=== PATIENT | female | born 1995 ===

== ENCOUNTER 2016-05-31 21:15 | Emergency (ER) | payer OTHER ==
--- NOTE | 2016-05-31 23:02 | ED NURSING NOTES ---
Clinical Report - Nurses [facility] [address] 05/31/2016 21:15 Patient: AUGUSTUS DODSON TRIAGE Triage time 21:May 31 2016. Acuity: LEVEL 3. Chief Complaint: RIGHT LOWER EXTREMITY SWELLING. LEFT LOWER EXTREMITY SWELLING. Alert. TONY COMA SCORE: Tony Coma Scale: 15- eyes open spontaneously (4); best verbal response- oriented x 4 (5); best motor response- obeys commands (6). --21:37 Jony Man R.N. 21:21 05/31/16. BP: 105/61. HR: 97. RR: 16. O2 saturation: 97%. Temp: 99 F. Pain level now: 8/10. Additional comments: Bilateral Foot Pain. --21:37 Jony Man R.N. Weight: 122.4 kg stated. Height/Length: 64 inches Per Patient. BMI: 46.4. --21:33 Jony Man R.N. Medications Levothyroxine Sodium Oral uncertain amount (Her PCP at the time told her to stop taking it (no blood work done)). --21:39 Jony Man R.N. Allergies Toradol. Definite Moderate(swelling) (burning) Tramadol.(swelling) (burning) --21:38 Jony Man R.N. History Arrived by private vehicle. Historian: patient. Primary physician ([place], [place]). ( Bilateral Swelling of the feet and legs associated with nausea and a BLANKENSHIP Also has intermittent pain in LUQ along the diaphragm). No injury occurred. This occurred (about 2 days ago). She has had swelling to right foot and left foot, trouble walking and weakness. Treatment AIRPORT REPRESENTATIVE: None. PAST MEDICAL HX: Tetanus status: unknown. Immunizations: seasonal influenza: first dose. Possibly . SOCIAL HX: Heavy tobacco smoker (cigarette)- less than 1 pack per day. No infectious disease exposure. ABUSE ASSESSMENT: No report of abuse. FALL RISK ASSESSMENT: Fall risk assessment completed. No fall risk identified. NUTRITIONAL RISK ASSESSMENT: The nutritional risk assessment revealed no deficiencies. FUNCTIONAL ASSESSMENT: Functional assessment: no impairments noted. LEARNING NEEDS ASSESSMENT: The learning needs assessment revealed no barriers. --21:37 Jony Man R.N. PROBLEMS: Neck Pain. Eustachian Tube Dysfunction. Bronchitis. Pharyngitis. Lumbar Strain. Back Pain. Muscle Spasm. Immunizations. LNMP - Last Normal Menstrual Period. Hypothyroidism. Lupus. --21:34 Jony Man R.N. ADDITIONAL SURGERIES: Tonsillectomy. --21:34 Jony Man R.N. Adenoidectomy. --21:34 Jony Man R.N. Interventions ID band on patient. To treatment room. --21:37 Jony aMn R.N. PHYSICAL ASSESSMENT Ambulatory to room. GENERAL / NEURO / PSYCH: Oriented X 4. EXTREMITIES: ( Slight bilat swelling around medial malleolus). SKIN: Skin intact. Skin is warm and dry. --21:42 Jony Man R.N. NURSING PROGRESS NOTES Reassurance given. Patient identifiers checked. Call light placed in reach. Side rails up x 1. Bed placed in lowest position. Brakes of bed on. Patient ready for evaluation- chart flagged and ED physician notified. --21:42 Jony Man R.N. DISPOSITION / DISCHARGE 23:10 05/31/16. Condition at departure: stable. The goals identified in the patient's plan of care were met. No learning barriers present. Discharge instructions provided and reviewed with the patient. Reviewed medication(s) side effects, precautions, dosing and course information. Prescription(s) given to the patient. Reviewed need for increased fluid intake. Patient and bag presser verbalized understanding. Written instructions provided in Vincentian. ( Follow up with your PCP in three days. CHC information given. Patient and bag presser wondering about how UTI is contracted. Patient advised to wipe front to back, avoid wearing tight synthetic material underwear. Drink plenty of fluids. Urinate after sexual intercourse.). The patient was discharged by the physician producer assistant. She was discharged home and accompanied by bag presser. She left the Emergency Department ambulatory and via private vehicle. Social And Human Services Assistant driving. FALL RISK ASSESSMENT: Fall risk assessment completed. No fall risk identified. --23:41 Tea Louise 23:10 05/31/16. BP: 105/60. HR: 82. RR: 18. O2 saturation: 97% on room air. Temp: 98.2 F (oral). Pain level now: 08/11. --23:41 Tea Louise. Locked/Released at 05/31/2016 23:42 by Tea Louise,
--- NOTE | 2016-05-31 23:02 | ED NURSING NOTES ---
Clinical Report - Nurses [facility] [place] [address] 05/31/2016 21:15 Patient: AUGUSTUS DODSON TRIAGE Triage time 21:May 31 2016. Acuity: LEVEL 3. Chief Complaint: RIGHT LOWER EXTREMITY SWELLING. LEFT LOWER EXTREMITY SWELLING. Alert. TONY COMA SCORE: Tony Coma Scale: 15- eyes open spontaneously (4); best verbal response- oriented x 4 (5); best motor response- obeys commands (6). --21:37 Jony Man R.N. 21:21 05/31/16. BP: 105/61. HR: 97. RR: 16. O2 saturation: 97%. Temp: 99 F. Pain level now: 8/10. Additional comments: Bilateral Foot Pain. --21:37 Jony Man R.N. Weight: 122.4 kg stated. Height/Length: 64 inches Per Patient. BMI: 46.4. --21:33 Jony Man R.N. Medications Levothyroxine Sodium Oral uncertain amount (Her PCP at the time told her to stop taking it (no blood work done)). --21:39 Jony Man R.N. Allergies Toradol. Definite Moderate(swelling) (burning) Tramadol.(swelling) (burning) --21:38 Jony Man R.N. History Arrived by private vehicle. Historian: patient. Primary physician ([place], [place]). ( Bilateral Swelling of the feet and legs associated with nausea and a BLANKENSHIP Also has intermittent pain in LUQ along the diaphragm). No injury occurred. This occurred (about 2 days ago). She has had swelling to right foot and left foot, trouble walking and weakness. Treatment HATCHERY LABORER: None. PAST MEDICAL HX: Tetanus status: unknown. Immunizations: seasonal influenza: first dose. Possibly . SOCIAL HX: Heavy tobacco smoker (cigarette)- less than 1 pack per day. No infectious disease exposure. ABUSE ASSESSMENT: No report of abuse. FALL RISK ASSESSMENT: Fall risk assessment completed. No fall risk identified. NUTRITIONAL RISK ASSESSMENT: The nutritional risk assessment revealed no deficiencies. FUNCTIONAL ASSESSMENT: Functional assessment: no impairments noted. LEARNING NEEDS ASSESSMENT: The learning needs assessment revealed no barriers. --21:37 Jony Man R.N. PROBLEMS: Neck Pain. Eustachian Tube Dysfunction. Bronchitis. Pharyngitis. Lumbar Strain. Back Pain. Muscle Spasm. Immunizations. LNMP - Last Normal Menstrual Period. Hypothyroidism. Lupus. --21:34 Jony Man R.N. ADDITIONAL SURGERIES: Tonsillectomy. --21:34 Jony Man R.N. Adenoidectomy. --21:34 Jony Man R.N. Interventions ID band on patient. To treatment room. --21:37 Jony Man R.N. PHYSICAL ASSESSMENT Ambulatory to room. GENERAL / NEURO / PSYCH: Oriented X 4. EXTREMITIES: ( Slight bilat swelling around medial malleolus). SKIN: Skin intact. Skin is warm and dry. --21:42 Jony Man R.N. NURSING PROGRESS NOTES Reassurance given. Patient identifiers checked. Call light placed in reach. Side rails up x 1. Bed placed in lowest position. Brakes of bed on. Patient ready for evaluation- chart flagged and ED physician notified. --21:42 Jony Man R.N. DISPOSITION / DISCHARGE 23:10 05/31/16. Condition at departure: stable. The goals identified in the patient's plan of care were met. No learning barriers present. Discharge instructions provided and reviewed with the patient. Reviewed medication(s) side effects, precautions, dosing and course information. Prescription(s) given to the patient. Reviewed need for increased fluid intake. Patient and spring floor service worker verbalized understanding. Written instructions provided in Dominican. ( Follow up with your PCP in three days. CHC information given. Patient and spring floor service worker wondering about how UTI is contracted. Patient advised to wipe front to back, avoid wearing tight synthetic material underwear. Drink plenty of fluids. Urinate after sexual intercourse.). The patient was discharged by the physician field assistant. She was discharged home and accompanied by spring floor service worker. She left the Emergency Department ambulatory and via private vehicle. Career Resource Specialist driving. FALL RISK ASSESSMENT: Fall risk assessment completed. No fall risk identified. --23:41 Tea Louise 23:10 05/31/16. BP: 105/60. HR: 82. RR: 18. O2 saturation: 97% on room air. Temp: 98.2 F (oral). Pain level now: 08/11. --23:41 Tea Louise. Locked/Released at 05/31/2016 23:42 by Tea Louise,
--- NOTE | 2016-05-31 23:02 | ED ORDER SUMMARY ---
..... Patient: AUGUSTUS DODSON OrderSheet [facility] VisitID: [id number] [place] [address] 20y, F Registration Date/Time: 05/31/2016 ORDER SHEET Weight: 122.4 kg (stated) Allergies: Toradol, Tramadol GENERAL ORDERS: UA-Culture if indicated Urgent (21:43 05/31/2016 JRomanelli R.N. verbal order read back to HBivens A.R.N.P.) (21:43 JRomanelli R.N.) Urine Urgent (21:43 05/31/2016 JRomanelli R.N. verbal order read back to HBivens A.R.N.P.) (21:43 JRomanelli R.N.) CBC w Diff Urgent (21:45 05/31/2016 HBivens A.R.N.P.) (Ack 21:46 SBaldwin) (23:42 HSoule) CMP Urgent (21:45 05/31/2016 HBivens A.R.N.P.) (Ack 21:46 SBaldwin) (23:42 HSoule) TSH Urgent (21:45 05/31/2016 HBivens A.R.N.P.) (Ack 21:46 SBaldwin) (23:42 HSoule) MEDICATION ORDERS: IV FLUIDS: ORDER SHEET NOTES: [Electronically signed by Julia De La Cruz A.R.N.P. (23:20 05/31/2016)] [Electronically signed by Tea Louise (23:42 05/31/2016)] [Electronically locked/signed by Tea Louise (23:42 05/31/2016)]
--- NOTE | 2016-05-31 23:02 | ED CLINICAL REPORT ---
Clinical Report - Physicians/Mid Levels [facility] [address] [place] [address] 05/31/2016 21:15 Patient: AUGUSTUS DODSON Time Seen: 21:29; initial patient contact, initial documentation, patient care assumed. Arrived- By private vehicle. Historian- patient. HISTORY OF PRESENT ILLNESS Chief Complaint: LOWER EXTREMITY SWELLING. Not relieved by anything- worsened by standing and walking. Severity is described as being mild. It is described as radiating (none). This started about 2 days ago and is still present. Symptoms located in the area of the right ankle, right leg, right foot, left leg, left foot and left ankle. The patient has had swelling, but not had redness. She has had difficulty walking. No bladder dysfunction, bowel dysfunction, sensory loss or motor loss. Patient denies an injury. Similar symptoms previously: None. Recent medical care: Not recently seen/assessed. REVIEW OF SYSTEMS No chest pain, difficulty breathing, fever, abdominal pain or vomiting. No diarrhea. All systems otherwise negative, except as recorded above. PAST HISTORY See nurses notes. ( PROBLEMS: Neck Pain. Eustachian Tube Dysfunction. Bronchitis. Pharyngitis. Lumbar Strain. Back Pain. Muscle Spasm. Immunizations. LNMP - Last Normal Menstrual Period. Hypothyroidism. Lupus. --21:34 Jony Man, R.N. ADDITIONAL SURGERIES: Tonsillectomy. --21:34 Jony Man, R.N. Adenoidectomy. --21:34 Jony Man, R.N.). SOCIAL HISTORY Heavy tobacco smoker. Occasional alcohol use. No drug use. No recent travel. Is a local resident. FAMILY HISTORY Negative. ADDITIONAL NOTES The nursing notes have been reviewed with agreement regarding the chief complaint, HPI, ROS, PMH and patient medications and allergies. PHYSICAL EXAM Vital Signs: 05/31/2016 21:21 BP: 105/61. HR: 97. RR: 16. O2 saturation: 97%. Temp: 99 F. Pain level now: 8/10. Have been reviewed as normal and appear to be correct. Appearance: Alert. Oriented X3. No acute distress. Eyes: Pupils equal, round and reactive to light. Eyes normal inspection. Neck: Normal inspection. Neck supple. CVS: Normal heart rate and rhythm. Heart sounds normal. Respiratory: No respiratory distress. Breath sounds normal. Skin: Skin intact. Skin warm and dry. Normal skin color. Normal skin turgor. Extremities: Lower extremities exhibit normal ROM. No lower extremity edema. Extremities otherwise negative. Gait: Normal gait. Neuro: Oriented X 3. No motor deficit. No sensory deficit. LABS, X-RAYS, AND EKG Laboratory Tests: UA-Culture if indicated: (TJ: 05/31/2016 21:25) ( [facility] 05/31/2016 22:03) Final results Test Result Flag Units (Reference) URINE COLOR YELLOW URINE APPEARANCE SL CLOUDY URINE GLUCOSE NEGATIVE (NEGATIVE) URINE BILIRUBIN NEGATIVE (NEGATIVE) URINE KETONE NEGATIVE (NEGATIVE) URINE SPECIFIC GRAVITY 1.015 (1.010-1.030) URINE PH 8.0 (5.0-8.0) URINE PROTEIN NEGATIVE (NEGATIVE) URINE UROBILINOGEN 0.2 EU/dL (0.2-1.0) URINE NITRITE NEGATIVE (NEGATIVE) URINE BLOOD NEGATIVE (NEGATIVE) URINE LEUK ESTERASE TRACE (NEGATIVE) URINE RBC 0-1 rbc/hpf (0-1) URINE WBC 3-5 wbc/hpf (0-1) URINE EPITHELIAL CELLS 3-5 EPI/hpf (0-5) URINE BACTERIA FEW (1+) (NONE SEEN) URINE COMMENT CULTURE INDICATED URINE CULTURES ARE SET-UP BASED ON THE FOLLOWING CRITERIA:POSITIVE NITRITEPOSITIVE LEUKOCYTE ESTERASEGREATER THAN 10 WHITE BLOOD CELLSMODERATE (2+) OR GREATER BACTERIA Urine: (TJ: 05/31/2016 21:25) ( [facility] 05/31/2016 21:56) Final results Test Result Flag Units (Reference) URINE NEGATIVE CBC w Diff: (TJ: 05/31/2016 21:55) ( [facility] 05/31/2016 22:15) Final results Test Result Flag Units (Reference) WHITE BLOOD COUNT 13.5 H K/uL (4.5-11.5) RED BLOOD COUNT 4.63 M/uL (4.00-5.20) HEMOGLOBIN 12.8 gm/dL (12.0-16.0) HEMATOCRIT 38.6 % (36.0-46.0) MEAN CELL VOLUME 83 fL (80-100) MEAN CORPUSCULAR HGB 28 pg (26-34) MEAN CORPUSCULAR HGB CONC 33 g/dL (31-37) RED CELL DISTRIBUTION WIDTH 13.3 % (11.6-14.8) PLATELET COUNT 326 K/uL (150-400) NEUTROPHIL % 59.9 % (50-75) LYMPH % 31.2 % (25-40) MONO % 5.9 % (3-14) EOSINOPHIL % 2.4 % (0-4) BASOPHIL % 0.6 % (0-2) CMP: (TJ: 05/31/2016 21:55) ( MsgRcvd 05/31/2016 22:37) Final results Test Result Flag Units (Reference) GLUCOSE 97 mg/dL (70-110) BUN 16 mg/dL (7-18) CREATININE 1.0 mg/dL (0.6-1.3) Estimated GFR >60 mL/min Estimated GFR- >60 mL/min Note: Persistent reduction over 3 months in eGFR<60 mL/min/1.73 m2 defines CKD. Patients with eGFR values>=60 mL/min/1.73 m2 may also have CKD if evidence ofpersistent proteinuria. Additional information may be foundat www.kidney.org. SODIUM 140 mmol/L (136-145) POTASSIUM 3.6 mmol/L (3.5-5.1) CHLORIDE 105 mmol/L (98-107) CARBON DIOXIDE 26 mmol/L (21-32) CALCIUM 8.9 mg/dL (8.5-10.1) TOTAL PROTEIN 7.3 g/dL (6.4-8.2) ALBUMIN 3.4 g/dL (3.3-5.0) BILIRUBIN, TOTAL 0.4 mg/dL (0.0-1.0) ALKALINE PHOSPHATASE 82 U/L (46-116) AST (SGOT) 21 U/L (15-37) ALT (SGPT) 42 U/L (12-78) THYROID STIMULATING HORMONE 3.889 H uIU/mL (0.34-3.74) . PROGRESS AND PROCEDURES Course of Care: 21:29 05/31/16. pt has velia for #19 er visits, see report for full details. Patient counseled in person regarding the patient's stable condition and diagnosis. 22:59. Differential Diagnosis: I considered metastatic cancer, multiple myeloma, degenerative joint disease, myositis, fasciitis, tendonitis, bursitis, embolism, deep venous thrombosis and superficial thrombophlebitis as a possible cause of lower extremity pain in this patient. This is a partial list of diagnoses considered. (pvd, electrolyte imbalance, chf, hypothyroid). Above considerations are based on history, physical exam and laboratory data. Differential diagnosis was discussed with patient. Disposition: Discharged home in good and unchanged condition (23:02). Condition: good and stable. CLINICAL IMPRESSION Acute urinary tract infection with cystitis. No pyelonephritis or hematuria. Not associated with indwelling catheter or obstruction. INSTRUCTIONS Warnings: GENERAL WARNINGS: Return or contact your physician immediately if your condition worsens or changes unexpectedly, if not improving as expected, or if other problems arise. Specifically return if problem worsens. Prescription Medications: Trimethoprim-Sulfamethoxazole DS: take 1 tablet orally every 12 hours for 7 days. Dispense fourteen (14). No refills. Follow-up: Follow up with your doctor in about three days even if well. Call for an appointment. Summary of care provided to patient. Understanding of the discharge instructions verbalized by patient. (Electronically signed by Julia De La Cruz A.R.N.P. 05/31/2016 23:20)
--- NOTE | 2016-05-31 23:02 | ED ORDER SUMMARY ---
..... Patient: AUGUSTUS DODSON OrderSheet [facility] VisitID: [id number] [place] [address] 20y, F Registration Date/Time: 05/31/2016 ORDER SHEET Weight: 122.4 kg (stated) Allergies: Toradol, Tramadol GENERAL ORDERS: UA-Culture if indicated Urgent (21:43 05/31/2016 JRomanelli R.N. verbal order read back to HBivens A.R.N.P.) (21:43 JRomanelli R.N.) Urine Urgent (21:43 05/31/2016 JRomanelli R.N. verbal order read back to HBivens A.R.N.P.) (21:43 JRomanelli R.N.) CBC w Diff Urgent (21:45 05/31/2016 HBivens A.R.N.P.) (Ack 21:46 SBaldwin) (23:42 HSoule) CMP Urgent (21:45 05/31/2016 HBivens A.R.N.P.) (Ack 21:46 SBaldwin) (23:42 HSoule) TSH Urgent (21:45 05/31/2016 HBivens A.R.N.P.) (Ack 21:46 SBaldwin) (23:42 HSoule) MEDICATION ORDERS: IV FLUIDS: ORDER SHEET NOTES: [Electronically signed by Julia De La Cruz A.R.N.P. (23:20 05/31/2016)] [Electronically signed by Tea Louise (23:42 05/31/2016)] [Electronically locked/signed by Tea Louise (23:42 05/31/2016)]
--- NOTE | 2016-05-31 23:42 | ED MAR SUMMARY ---
..... Medication Administration [facility] [address] [place], [place] [id number] Patient: AUGUSTUS DODSON Visit ID: [id number] 20y, F Weight: 122.4 kg Height/Length: 64 in BMI: 46.4 ALLERGIES: Toradol, Tramadol
--- NOTE | 2016-05-31 23:42 | ED MED RECONCILIATION SUMMARY ---
Patient: AUGUSTUS DODSON Medication Reconciliation Report [facility] VisitID: [id number] [place] [address] 20y, F Registration Date/Time: 05/31/2016 Weight: 122.4 kg Height/Length: 64 in. BMI: 46.4 ALLERGIES: Toradol, Tramadol The patient's Home Medications are listed below: THE FOLLOWING MEDICATIONS NEED TO BE RECONCILED: Levothyroxine Sodium Oral uncertain amount, Her PCP at the time told her to stop taking it (no blood work done) The source(s) of the original Home Medication information: Not obtained. The following Medications were given to the patient in the Emergency Department: None. The following Medications were prescribed to the patient: Trimethoprim-Sulfamethoxazole DS: take 1 tablet orally every 12 hours for 7 days. Dispense fourteen (14). No refills. -- Julia De La Cruz A.R.N.P.
--- NOTE | 2016-05-31 23:42 | ED MED RECONCILIATION SUMMARY ---
Patient: AUGUSTUS DODSON Medication Reconciliation Report [facility] VisitID: [id number] [place] [address] 20y, F Registration Date/Time: 05/31/2016 Weight: 122.4 kg Height/Length: 64 in. BMI: 46.4 ALLERGIES: Toradol, Tramadol The patient's Home Medications are listed below: THE FOLLOWING MEDICATIONS NEED TO BE RECONCILED: Levothyroxine Sodium Oral uncertain amount, Her PCP at the time told her to stop taking it (no blood work done) The source(s) of the original Home Medication information: Not obtained. The following Medications were given to the patient in the Emergency Department: None. The following Medications were prescribed to the patient: Trimethoprim-Sulfamethoxazole DS: take 1 tablet orally every 12 hours for 7 days. Dispense fourteen (14). No refills. -- Julia De La Cruz A.R.N.P.
--- NOTE | 2016-05-31 23:42 | ED DISCHARGE INSTRUCTIONS ---
Patient: AUGUSTUS DODSON General Instructions [facility] VisitID: [id number] [place] [address] 20y, F Registration Date/Time: 05/31/2016 Acute urinary tract infection with cystitis. No pyelonephritis or hematuria. Not associated with indwelling catheter or obstruction. INSTRUCTIONS Warnings: GENERAL WARNINGS: Return or contact your physician immediately if your condition worsens or changes unexpectedly, if not improving as expected, or if other problems arise. Specifically return if problem worsens. Prescription Medications: Trimethoprim-Sulfamethoxazole DS: take 1 tablet orally every 12 hours for 7 days. Dispense fourteen (14). No refills. Follow-up: Follow up with your doctor in about three days even if well. Call for an appointment. Summary of care provided to patient. Understanding of the discharge instructions verbalized by patient. ADDITIONAL INFORMATION Bladder Infection,Female (Adult) A bladder infection ("cystitis" or "UTI") usually causes a constant urge to urinate and a burning when passing urine. Urine may be cloudy, smelly or dark. There may be pain in the lower abdomen. A bladder infection occurs when bacteria from the vaginal area enter the bladder opening (urethra). This can occur from sexual intercourse, wearing tight clothing, dehydration and other factors. Home Care: Drink lots of fluids (at least 6-8 glasses a day, unless you must restrict fluids for other medical reasons). This will force the medicine into your urinary system and flush the bacteria out of your body. Avoid sexual intercourse until your symptoms are gone. Avoid caffeine, alcohol and spicy foods. These can irritate the bladder. A bladder infection is treated with antibiotics. You may also be given Pyridium (generic = phenazopyridine) to reduce the burning sensation. This medicine will cause your urine to become a bright orange color. The orange urine may stain clothing. You may wear a pad or panty-liner to protect clothing. Preventing Future Infections: Always wipe from front to back after a bowel movement. Keep the genital area clean and dry. Drink plenty of fluids each day to avoid dehydration. Both sexual partners should wash before intercourse. Urinate right after intercourse to flush out the bladder. Wear cotton underwear and cotton-lined panty hose; avoid tight-fitting pants. If you are on control pills and are having frequent bladder infections, discuss with your doctor. Follow Up: Return to this facility or see your doctor if ALL symptoms are not gone after three days of treatment. Get Prompt Medical Attention if any of the following occur: Fever of 100.4F (38C) or higher, or as directed by your healthcare provider No improvement by the third day of treatment Increasing back or abdominal pain Repeated vomiting; unable to keep medicine down Weakness, dizziness or fainting Vaginal discharge Pain, redness or swelling in the labia (outer vaginal area) Sulfamethoxazole, Trimethoprim Oral tablet What is this medicine? SULFAMETHOXAZOLE; TRIMETHOPRIM or SMX-TMP (suhl fuh meth OK chi zohl; trye METH oh prim) is a combination of a sulfonamide antibiotic and a second antibiotic, trimethoprim. It is used to treat or prevent certain kinds of bacterial infections. It will not work for colds, flu, or other viral infections. How should I use this medicine? Take this medicine by mouth with a full glass of water. Follow the directions on the prescription label. Take your medicine at regular intervals. Do not take it more often than directed. Do not skip doses or stop your medicine early. Talk to your firearms model maker regarding the use of this medicine in children. Special care may be needed. This medicine has been used in children as young as 2 months of age. What side effects may I notice from receiving this medicine? Side effects that you should report to your doctor or health career services officer as soon as possible: allergic reactions like skin rash or hives, swelling of the face, lips, or tongue breathing problems fever or chills, sore throat irregular heartbeat, chest pain joint or muscle pain pain or difficulty passing urine red pinpoint spots on skin redness, blistering, peeling or loosening of the skin, including inside the mouth unusual bleeding or bruising unusually weak or tired yellowing of the eyes or skin Side effects that usually do not require medical attention (report to your doctor or health career services officer if they continue or are bothersome): diarrhea dizziness headache loss of appetite nausea, vomiting nervousness What may interact with this medicine? Do not take this medicine with any of the following medications: aminobenzoate potassium dofetilide metronidazole This medicine may also interact with the following medications: MEHRAN inhibitors like benazepril, enalapril, lisinopril, and ramipril cyclosporine digoxin diuretics indomethacin medicines for diabetes methenamine methotrexate phenytoin potassium supplements pyrimethamine sulfinpyrazone tricyclic antidepressants warfarin What if I miss a dose? If you miss a dose, take it as soon as you can. If it is almost time for your next dose, take only that dose. Do not take double or extra doses. Where should I keep my medicine? Keep out of the reach of children. Store at room temperature between 20 to 25 degrees C (68 to 77 degrees F). Protect from light. Throw away any unused medicine after the expiration date. What should I tell my health care provider before I take this medicine? They need to know if you have any of these conditions: anemia asthma being treated with anticonvulsants if you frequently drink alcohol containing drinks kidney disease liver disease low level of folic acid or [id number]-[id number] dehydrogenase poor nutrition or malabsorption porphyria severe allergies thyroid disorder an unusual or allergic reaction to sulfamethoxazole, trimethoprim, sulfa drugs, other medicines, foods, dyes, or preservatives or trying to get breast-feeding What should I watch for while using this medicine? Tell your doctor or health career services officer if your symptoms do not improve. Drink several glasses of water a day to reduce the risk of kidney problems. Do not treat diarrhea with over the counter products. Contact your doctor if you have diarrhea that lasts more than 2 days or if it is severe and watery. This medicine can make you more sensitive to the sun. Keep out of the sun. If you cannot avoid being in the sun, wear protective clothing and use a sunscreen. Do not use sun lamps or tanning beds/booths. You have been given the following additional information: Bladder Infection, Female (Adult) Sulfamethoxazole, Trimethoprim Oral tablet (Electronically signed by Julia De La Cruz A.R.N.P. 05/31/2016 23:20)
--- NOTE | 2016-05-31 23:42 | ED MAR SUMMARY ---
..... Medication Administration Record [facility] [address] [place], [place] [id number] Patient: AUGUSTUS DODSON Visit ID: [id number] 20y, F Weight: 122.4 kg Height/Length: 64 in BMI: 46.4 ALLERGIES: Toradol, Tramadol
--- NOTE | 2016-05-31 23:42 | ED DISCHARGE INSTRUCTIONS ---
Patient: AUGUSTUS DODSON General Instructions [facility] VisitID: [id number] [place] [address] 20y, F Registration Date/Time: 05/31/2016 Acute urinary tract infection with cystitis. No pyelonephritis or hematuria. Not associated with indwelling catheter or obstruction. INSTRUCTIONS Warnings: GENERAL WARNINGS: Return or contact your physician immediately if your condition worsens or changes unexpectedly, if not improving as expected, or if other problems arise. Specifically return if problem worsens. Prescription Medications: Trimethoprim-Sulfamethoxazole DS: take 1 tablet orally every 12 hours for 7 days. Dispense fourteen (14). No refills. Follow-up: Follow up with your doctor in about three days even if well. Call for an appointment. Summary of care provided to patient. Understanding of the discharge instructions verbalized by patient. ADDITIONAL INFORMATION Bladder Infection,Female (Adult) A bladder infection ("cystitis" or "UTI") usually causes a constant urge to urinate and a burning when passing urine. Urine may be cloudy, smelly or dark. There may be pain in the lower abdomen. A bladder infection occurs when bacteria from the vaginal area enter the bladder opening (urethra). This can occur from sexual intercourse, wearing tight clothing, dehydration and other factors. Home Care: Drink lots of fluids (at least 6-8 glasses a day, unless you must restrict fluids for other medical reasons). This will force the medicine into your urinary system and flush the bacteria out of your body. Avoid sexual intercourse until your symptoms are gone. Avoid caffeine, alcohol and spicy foods. These can irritate the bladder. A bladder infection is treated with antibiotics. You may also be given Pyridium (generic = phenazopyridine) to reduce the burning sensation. This medicine will cause your urine to become a bright orange color. The orange urine may stain clothing. You may wear a pad or panty-liner to protect clothing. Preventing Future Infections: Always wipe from front to back after a bowel movement. Keep the genital area clean and dry. Drink plenty of fluids each day to avoid dehydration. Both sexual partners should wash before intercourse. Urinate right after intercourse to flush out the bladder. Wear cotton underwear and cotton-lined panty hose; avoid tight-fitting pants. If you are on control pills and are having frequent bladder infections, discuss with your doctor. Follow Up: Return to this facility or see your doctor if ALL symptoms are not gone after three days of treatment. Get Prompt Medical Attention if any of the following occur: Fever of 100.4F (38C) or higher, or as directed by your healthcare provider No improvement by the third day of treatment Increasing back or abdominal pain Repeated vomiting; unable to keep medicine down Weakness, dizziness or fainting Vaginal discharge Pain, redness or swelling in the labia (outer vaginal area) Sulfamethoxazole, Trimethoprim Oral tablet What is this medicine? SULFAMETHOXAZOLE; TRIMETHOPRIM or SMX-TMP (suhl fuh meth OK chi zohl; trye METH oh prim) is a combination of a sulfonamide antibiotic and a second antibiotic, trimethoprim. It is used to treat or prevent certain kinds of bacterial infections. It will not work for colds, flu, or other viral infections. How should I use this medicine? Take this medicine by mouth with a full glass of water. Follow the directions on the prescription label. Take your medicine at regular intervals. Do not take it more often than directed. Do not skip doses or stop your medicine early. Talk to your traveling freight agent regarding the use of this medicine in children. Special care may be needed. This medicine has been used in children as young as 2 months of age. What side effects may I notice from receiving this medicine? Side effects that you should report to your doctor or health managed care director as soon as possible: allergic reactions like skin rash or hives, swelling of the face, lips, or tongue breathing problems fever or chills, sore throat irregular heartbeat, chest pain joint or muscle pain pain or difficulty passing urine red pinpoint spots on skin redness, blistering, peeling or loosening of the skin, including inside the mouth unusual bleeding or bruising unusually weak or tired yellowing of the eyes or skin Side effects that usually do not require medical attention (report to your doctor or health managed care director if they continue or are bothersome): diarrhea dizziness headache loss of appetite nausea, vomiting nervousness What may interact with this medicine? Do not take this medicine with any of the following medications: aminobenzoate potassium dofetilide metronidazole This medicine may also interact with the following medications: MEHRAN inhibitors like benazepril, enalapril, lisinopril, and ramipril cyclosporine digoxin diuretics indomethacin medicines for diabetes methenamine methotrexate phenytoin potassium supplements pyrimethamine sulfinpyrazone tricyclic antidepressants warfarin What if I miss a dose? If you miss a dose, take it as soon as you can. If it is almost time for your next dose, take only that dose. Do not take double or extra doses. Where should I keep my medicine? Keep out of the reach of children. Store at room temperature between 20 to 25 degrees C (68 to 77 degrees F). Protect from light. Throw away any unused medicine after the expiration date. What should I tell my health care provider before I take this medicine? They need to know if you have any of these conditions: anemia asthma being treated with anticonvulsants if you frequently drink alcohol containing drinks kidney disease liver disease low level of folic acid or fkytokj-[id number]-opmmxhnbr dehydrogenase poor nutrition or malabsorption porphyria severe allergies thyroid disorder an unusual or allergic reaction to sulfamethoxazole, trimethoprim, sulfa drugs, other medicines, foods, dyes, or preservatives or trying to get breast-feeding What should I watch for while using this medicine? Tell your doctor or health managed care director if your symptoms do not improve. Drink several glasses of water a day to reduce the risk of kidney problems. Do not treat diarrhea with over the counter products. Contact your doctor if you have diarrhea that lasts more than 2 days or if it is severe and watery. This medicine can make you more sensitive to the sun. Keep out of the sun. If you cannot avoid being in the sun, wear protective clothing and use a sunscreen. Do not use sun lamps or tanning beds/booths. You have been given the following additional information: Bladder Infection, Female (Adult) Sulfamethoxazole, Trimethoprim Oral tablet (Electronically signed by Julia De La Cruz A.R.N.P. 05/31/2016 23:20)
== END 2016-05-31 23:10 | disposition home or self-care (01) ==
LOC: ED SRH 21:15
DX: N30.00 Acute cystitis without hematuria (principal); M32.9 Systemic lupus erythematosus, unspecified; F17.210 Nicotine dependence, cigarettes, uncomplicated; Z88.8 Allergy status to other drugs, medicaments and biological substances; E03.9 Hypothyroidism, unspecified
CPT/HCPCS: 90004; 90100; 90469; 93070; 93140; 95059

== ENCOUNTER 2016-07-14 18:39 | Emergency (ER) | payer OTHER ==
--- NOTE | 2016-07-14 20:17 | ED NURSING NOTES ---
Clinical Report - Nurses [facility] [address] [place] [address] 07/14/2016 18:42 Patient: AUGUSTUS WINSLOW TRIAGE Triage time 1845. Acuity: LEVEL 3. Chief Complaint: (Pt feels she is retaining water and has bilat leg swelling, no swelling is appreciated and there is no redness). Alert. No acute distress. --18:56 Marina Nicole 18:52 07/14/16. BP: 125/72. HR: 82. RR: 16. O2 saturation: 100%. Temp: 98 F. Pain level now 210. --18:56 Marina Nicole. Weight: 125.4 kg. Height/Length: 65 inches. BMI: 46.1. --18:51 Marina Nicole. Medications None. --18:54 Marina Nicole. Medication/allergy information source: the patient. --18:56 Marina Nicole. Allergies Toradol. --18:54 Marina Nicole Tramadol. --18:54 Marina Nicole. History Arrived by private vehicle. Historian: patient. Accompanied by (SO). Treatment DISTRIBUTION DISPATCHER: None. PAST MEDICAL HX: Last normal menstrual period- June 21. SOCIAL HX: Light tobacco smoker (cigarette)- less than 1/2 a pack per day. --18:56 Marina Nicole. PROBLEMS: UTI - Urinary Tract Infection. Neck Pain. Eustachian Tube Dysfunction. Bronchitis. Pharyngitis. Lumbar Strain. Back Pain. Muscle Spasm. Hypothyroidism. Lupus. --18:54 Marina Nicole. ADDITIONAL SURGERIES: Adenoidectomy. Tonsillectomy. --18:55 Marina Nicole. Interventions ID band on patient. To treatment room. --18:56 Marina Nicole. PHYSICAL ASSESSMENT Ambulatory to room. GENERAL / NEURO / PSYCH: Alert. Oriented X 4. Appears in no acute distress. ( Fully ambulatory with even steady gait). HEENT: Pupils equal, round and reactive to light. No facial asymmetry noted. Mucous membranes are pink. RESPIRATORY: Respirations not labored. Chest nontender. Breath sounds within normal limits. CVS: Normal sinus rhythm noted. Capillary refill less than 2 seconds. Pulses within normal limits. GI / : ( morbidly obese abd). Abdomen soft and nontender and normal bowel sounds. SKIN: Skin intact. Skin is warm. Normal skin turgor. --18:57 Marina Nicole. NURSING PROGRESS NOTES Reassurance given. Call light placed in reach. Side rails up x 1. Bed placed in lowest position. Brakes of bed on. Patient ready for evaluation- chart flagged. --18:57 Marina Nicole 19:30. The patient is resting quietly. Overall patient status is the same- she states feels the same. --19:30 Jennifer Woods R.N. Blood samples drawn by lab. --19:30 Jennifer Woods R.N. Clean catch urine collected. (specimen taken by company laborer). --19:31 Jennifer Woods R.N. The patient reports no complaints and she is calm and resting quietly. Patient waiting for lab results. --19:58 Marina Nicole 19:57 07/14/16. BP: 114/59. HR: 80. RR: 16. O2 saturation: 100%. --19:58 Marina Nicole. DISPOSITION / DISCHARGE 20:31 07/14/16. Condition at departure: improved. No learning barriers present. Discharge instructions provided and reviewed with the patient. Reviewed medication(s) side effects, precautions, dosing and course information. Prescription(s) given to the patient (Levothyroxine). Reviewed need to stop smoking- provided smoking cessation materials. Follow up contact number Seamar in 2 days. Patient verbalized understanding. Written instructions provided in Cuban. The patient was discharged by the physician. She was discharged home and accompanied by spouse. She left the Emergency Department ambulatory and via private vehicle. Spouse driving. --20:31 Eloisa Rodriguez R.N. 20:26 07/14/16. BP: 114/63 (large adult cuff) taken on the left arm. HR: 84. RR: 18. O2 saturation: 99% on room air. Temp: 98.3 F (oral). Pain level now: 0/10. --20:31 Eloisa Rodriguez R.N. Departure time: 20:34 Jul 14 2016. --20:34 Eloisa Rodriguez R.N. Locked/Released at 07/15/2016 6:19 by Eloisa Rodriguez R.N.
--- NOTE | 2016-07-14 20:17 | ED NURSING NOTES ---
Clinical Report - Nurses [facility] [address] [place] [address] 07/14/2016 18:42 Patient: AUGUSTUS WINSLOW TRIAGE Triage time 1845. Acuity: LEVEL 3. Chief Complaint: (Pt feels she is retaining water and has bilat leg swelling, no swelling is appreciated and there is no redness). Alert. No acute distress. --18:56 Marina Nicole 18:52 07/14/16. BP: 125/72. HR: 82. RR: 16. O2 saturation: 100%. Temp: 98 F. Pain level now 210. --18:56 Marina Nicole. Weight: 125.4 kg. Height/Length: 65 inches. BMI: 46.1. --18:51 Marina Nicole. Medications None. --18:54 Marina Nicole. Medication/allergy information source: the patient. --18:56 Marina Nicole. Allergies Toradol. --18:54 Marian Nicole Tramadol. --18:54 Marina Nicole. History Arrived by private vehicle. Historian: patient. Accompanied by (SO). Treatment PC ANALYST: None. PAST MEDICAL HX: Last normal menstrual period- June 21. SOCIAL HX: Light tobacco smoker (cigarette)- less than 1/2 a pack per day. --18:56 Marina Nicole. PROBLEMS: UTI - Urinary Tract Infection. Neck Pain. Eustachian Tube Dysfunction. Bronchitis. Pharyngitis. Lumbar Strain. Back Pain. Muscle Spasm. Hypothyroidism. Lupus. --18:54 Marina Nicole. ADDITIONAL SURGERIES: Adenoidectomy. Tonsillectomy. --18:55 Marina Nicole. Interventions ID band on patient. To treatment room. --18:56 Marina Nicole. PHYSICAL ASSESSMENT Ambulatory to room. GENERAL / NEURO / PSYCH: Alert. Oriented X 4. Appears in no acute distress. ( Fully ambulatory with even steady gait). HEENT: Pupils equal, round and reactive to light. No facial asymmetry noted. Mucous membranes are pink. RESPIRATORY: Respirations not labored. Chest nontender. Breath sounds within normal limits. CVS: Normal sinus rhythm noted. Capillary refill less than 2 seconds. Pulses within normal limits. GI / : ( morbidly obese abd). Abdomen soft and nontender and normal bowel sounds. SKIN: Skin intact. Skin is warm. Normal skin turgor. --18:57 Marina Nicole. NURSING PROGRESS NOTES Reassurance given. Call light placed in reach. Side rails up x 1. Bed placed in lowest position. Brakes of bed on. Patient ready for evaluation- chart flagged. --18:57 Marina Nicole 19:30. The patient is resting quietly. Overall patient status is the same- she states feels the same. --19:30 Jennifer Woods R.N. Blood samples drawn by lab. --19:30 Jennifer Woods R.N. Clean catch urine collected. (specimen taken by laboratory specialist). --19:31 Jennifer Woods R.N. The patient reports no complaints and she is calm and resting quietly. Patient waiting for lab results. --19:58 Marina Nicole 19:57 07/14/16. BP: 114/59. HR: 80. RR: 16. O2 saturation: 100%. --19:58 Marina Nicole. DISPOSITION / DISCHARGE 20:31 07/14/16. Condition at departure: improved. No learning barriers present. Discharge instructions provided and reviewed with the patient. Reviewed medication(s) side effects, precautions, dosing and course information. Prescription(s) given to the patient (Levothyroxine). Reviewed need to stop smoking- provided smoking cessation materials. Follow up contact number Seamar in 2 days. Patient verbalized understanding. Written instructions provided in Luxembour[place]. The patient was discharged by the physician. She was discharged home and accompanied by spouse. She left the Emergency Department ambulatory and via private vehicle. Spouse driving. --20:31 Eloisa Rodriguez R.N. 20:26 07/14/16. BP: 114/63 (large adult cuff) taken on the left arm. HR: 84. RR: 18. O2 saturation: 99% on room air. Temp: 98.3 F (oral). Pain level now: 0/10. --20:31 Eloisa Rodriguez R.N. Departure time: 20:34 Jul 14 2016. --20:34 Eloisa Rodriguez R.N. Locked/Released at 07/15/2016 6:19 by Eloisa Rodriguez R.N.
--- NOTE | 2016-07-14 20:17 | ED CLINICAL REPORT ---
Clinical Report - Physicians/Mid Levels [facility] [address] [place] [address] 07/14/2016 18:42 Patient: AUGUSTUS WINSLOW Time Seen: 18:49. Arrived- By private vehicle. Historian- patient. HISTORY OF PRESENT ILLNESS Chief Complaint: LOWER EXTREMITY SWELLING. This started several months ago and is still present. It was gradual in onset and has been waxing/waning. At its maximum, severity described as moderate. When seen in the E.D., severity described as moderate. Modifying factors- worsened by walking. Relieved by rest. No loss of appetite, headache, visual disturbance, fatigue or weakness. Similar symptoms previously: Recent medical care: The patient was seen recently at this facility and another facility in the emergency department. Diagnosis: unknown. ( Pt seen at [facility] ED about 1 month ago and about 2 weeks ago at an ED in [place], [place]). REVIEW OF SYSTEMS No fever, sore throat, sinus drainage, cough or difficulty breathing. No chest pain, abdominal pain, nausea, vomiting or diarrhea. No black stools, bloody stools, difficulty with urination, abnormal bleeding or back pain. No headache. The patient has had difficulty with ambulation. It has been associated with pain in both legs. All systems otherwise negative, except as recorded above. PAST HISTORY See nurses notes. PCP: Catalino Rodrigues PROBLEMS: Neck Pain. Eustachian Tube Dysfunction. Bronchitis. Pharyngitis. Lumbar Strain. Back Pain. Muscle Spasm. Hypothyroidism. Lupus. SURGERIES: Tonsillectomy. Adenoidectomy. SOCIAL HISTORY Smoker- current status unknown. Occasional alcohol use. No drug use. FAMILY HISTORY Cancer in first-degree relative (father). Father had alpha -1 antitrypsin def. ADDITIONAL NOTES The nursing notes have been reviewed. PHYSICAL EXAM Vital Signs: 07/14/2016 18:52 BP: 125/72. HR: 82. RR: 16. O2 saturation: 100%. Temp: 98 F. Appearance: Alert. Anxious. Patient in mild distress. Eyes: Eyes normal inspection. No scleral icterus or pale conjunctivae. ENT: Pharynx normal. No pharyngeal erythema or tonsillar exudate. The mucous membranes are not dry. Neck: Normal inspection. Neck supple. CVS: Normal heart rate and rhythm. Heart sounds normal. Pulses normal. Respiratory: No respiratory distress. Breath sounds normal. Abdomen: No visible injury. Soft and nontender. No organomegaly. No mass. Back: Normal inspection. Skin: Skin warm and dry. Normal skin color. No rash. Normal skin turgor. Extremities: Bilateral mild edema of the lower extremities. Extremities exhibit normal ROM. No calf tenderness. (body habitus limits exam). Neuro: Oriented X 3. No motor deficit. No sensory deficit. Reflexes normal. LABS, X-RAYS, AND EKG Laboratory Tests: UA-Culture if indicated: (TJ: 07/14/2016 19:12) ( [facility] 07/14/2016 19:41) Final results Test Result Flag Units (Reference) URINE COLOR YELLOW URINE APPEARANCE CLEAR URINE GLUCOSE NEGATIVE (NEGATIVE) URINE BILIRUBIN NEGATIVE (NEGATIVE) URINE KETONE NEGATIVE (NEGATIVE) URINE SPECIFIC GRAVITY 1.020 (1.010-1.030) URINE PH 7.0 (5.0-8.0) URINE PROTEIN NEGATIVE (NEGATIVE) URINE UROBILINOGEN 0.2 EU/dL (0.2-1.0) URINE NITRITE NEGATIVE (NEGATIVE) URINE BLOOD NEGATIVE (NEGATIVE) URINE LEUK ESTERASE NEGATIVE (NEGATIVE) URINE RBC 0-1 rbc/hpf (0-1) URINE WBC 1-3 wbc/hpf (0-1) URINE EPITHELIAL CELLS 1-3 EPI/hpf (0-5) URINE BACTERIA NONE SEEN (NONE SEEN) URINE COMMENT CULT NOT INDICATED URINE CULTURES ARE SET-UP BASED ON THE FOLLOWING CRITERIA:POSITIVE NITRITEPOSITIVE LEUKOCYTE ESTERASEGREATER THAN 10 WHITE BLOOD CELLSMODERATE (2+) OR GREATER BACTERIA CBC w Diff: (TJ: 07/14/2016 19:12) ( [facility] 07/14/2016 19:31) Final results Test Result Flag Units (Reference) WHITE BLOOD COUNT 12.5 H K/uL (4.5-11.5) RED BLOOD COUNT 4.78 M/uL (4.00-5.20) HEMOGLOBIN 13.1 gm/dL (12.0-16.0) HEMATOCRIT 40.5 % (36.0-46.0) MEAN CELL VOLUME 85 fL (80-100) MEAN CORPUSCULAR HGB 28 pg (26-34) MEAN CORPUSCULAR HGB CONC 33 g/dL (31-37) RED CELL DISTRIBUTION WIDTH 13.5 % (11.6-14.8) PLATELET COUNT 355 K/uL (150-400) NEUTROPHIL % 61.1 % (50-75) LYMPH % 29.6 % (25-40) MONO % 7.5 % (3-14) EOSINOPHIL % 1.4 % (0-4) BASOPHIL % 0.4 % (0-2) [id number]: (TJ: 07/14/2016 19:12) ( [facility] 07/14/2016 19:52) Final results Test Result Flag Units (Reference) D-DIMER QUANTITATIVE < 0.27 L ug/mLFEU (0.27-0.52) The primary value of this quantitative assay relates toits negative predictive value (i.e. exclusion) of pulmonaryembolism/deep vein thrombosis/DIC.Elevated levels of d-dimer may also occur with:, age, cancer, inflammation, liver disease,post-op, infection, hematoma, coronary disease, peripheralarteriopathy, bleeding disorders and thrombolytic treatment.Results should be correlated with other clinical andradiological data.Testing Methodology: Latex Immunoassay BNP: (TJ: 07/14/2016 19:12) ( [facility] 07/14/2016 19:44) Final results Test Result Flag Units (Reference) B-TYPE NATRIURETIC PEPTIDE < 5.0 L pg/ml (5-100) BMP: (TJ: 07/14/2016 19:12) ( [facility] 07/14/2016 19:59) Final results Test Result Flag Units (Reference) GLUCOSE 97 mg/dL (70-110) BUN 10 mg/dL (7-18) CREATININE 0.8 mg/dL (0.6-1.3) Estimated GFR >60 mL/min Estimated GFR- >60 mL/min Note: Persistent reduction over 3 months in eGFR<60 mL/min/1.73 m2 defines CKD. Patients with eGFR values>=60 mL/min/1.73 m2 may also have CKD if evidence ofpersistent proteinuria. Additional information may be foundat www.kidney.org. SODIUM 144 mmol/L (136-145) POTASSIUM 3.7 mmol/L (3.5-5.1) CHLORIDE 107 mmol/L (98-107) CARBON DIOXIDE 27 mmol/L (21-32) CALCIUM 8.5 mg/dL (8.5-10.1) TROPONIN I <0.05 L ng/mL (0.00-1.5) TROPONIN REFERENCE RANGE:<0.1 NEGATIVE0.1-1.5 INDETERMINANT>1.5 POSITIVE THYROID STIMULATING HORMONE 3.759 H uIU/mL (0.34-3.74) FREE T4 (FREE THYROXINE) 1.20 ng/dL (0.78-4.13) . Pulse Oximetry: 07/14/2016 18:52 O2 saturation: 100%. (FIO2 - room air). Interpretation: normal. PROGRESS AND PROCEDURES Course of Care: No signs of serious cardiopulmonary disease now. Mild hypothyroid (chronic and without myxedema). Patient/family counseled. Old ED records reviewed. Disposition: Discharged. Condition: stable and improved. CLINICAL IMPRESSION Bilateral pedal edema secondary to chronic venous insufficiency and unknown cause. Acquired hypothyroidism. INSTRUCTIONS Drink plenty of fluids. Do not smoke. Seek medical help to quit smoking. No alcohol until released. Warnings: Further evaluation is necessary. It is very important to follow up with a physician. GENERAL WARNINGS: Return or contact your physician immediately if your condition worsens or changes unexpectedly, if not improving as expected, or if other problems arise. Prescription Medications: Levothyroxine 100 mcg: take 1 orally every 24 hours. Dispense fifteen (15). No refills. Follow-up with: [facility], [facility], , [address] [place] [address], [place] [address] Follow up Saturday in two days. (Electronically signed by Jean-Claude Barrera DO 07/14/2016 21:32)
--- NOTE | 2016-07-14 20:17 | ED CLINICAL REPORT ---
Clinical Report - Physicians/Mid Levels [facility] [address] [place] [address] 07/14/2016 18:42 Patient: AUGUSTUS WINSLOW Time Seen: 18:49. Arrived- By private vehicle. Historian- patient. HISTORY OF PRESENT ILLNESS Chief Complaint: LOWER EXTREMITY SWELLING. This started several months ago and is still present. It was gradual in onset and has been waxing/waning. At its maximum, severity described as moderate. When seen in the E.D., severity described as moderate. Modifying factors- worsened by walking. Relieved by rest. No loss of appetite, headache, visual disturbance, fatigue or weakness. Similar symptoms previously: Recent medical care: The patient was seen recently at this facility and another facility in the emergency department. Diagnosis: unknown. ( Pt seen at [facility] ED about 1 month ago and about 2 weeks ago at an ED in [place], [place]). REVIEW OF SYSTEMS No fever, sore throat, sinus drainage, cough or difficulty breathing. No chest pain, abdominal pain, nausea, vomiting or diarrhea. No black stools, bloody stools, difficulty with urination, abnormal bleeding or back pain. No headache. The patient has had difficulty with ambulation. It has been associated with pain in both legs. All systems otherwise negative, except as recorded above. PAST HISTORY See nurses notes. PCP: Catalino Rodrigues PROBLEMS: Neck Pain. Eustachian Tube Dysfunction. Bronchitis. Pharyngitis. Lumbar Strain. Back Pain. Muscle Spasm. Hypothyroidism. Lupus. SURGERIES: Tonsillectomy. Adenoidectomy. SOCIAL HISTORY Smoker- current status unknown. Occasional alcohol use. No drug use. FAMILY HISTORY Cancer in first-degree relative (father). Father had alpha -1 antitrypsin def. ADDITIONAL NOTES The nursing notes have been reviewed. PHYSICAL EXAM Vital Signs: 07/14/2016 18:52 BP: 125/72. HR: 82. RR: 16. O2 saturation: 100%. Temp: 98 F. Appearance: Alert. Anxious. Patient in mild distress. Eyes: Eyes normal inspection. No scleral icterus or pale conjunctivae. ENT: Pharynx normal. No pharyngeal erythema or tonsillar exudate. The mucous membranes are not dry. Neck: Normal inspection. Neck supple. CVS: Normal heart rate and rhythm. Heart sounds normal. Pulses normal. Respiratory: No respiratory distress. Breath sounds normal. Abdomen: No visible injury. Soft and nontender. No organomegaly. No mass. Back: Normal inspection. Skin: Skin warm and dry. Normal skin color. No rash. Normal skin turgor. Extremities: Bilateral mild edema of the lower extremities. Extremities exhibit normal ROM. No calf tenderness. (body habitus limits exam). Neuro: Oriented X 3. No motor deficit. No sensory deficit. Reflexes normal. LABS, X-RAYS, AND EKG Laboratory Tests: UA-Culture if indicated: (TJ: 07/14/2016 19:12) ( [facility] 07/14/2016 19:41) Final results Test Result Flag Units (Reference) URINE COLOR YELLOW URINE APPEARANCE CLEAR URINE GLUCOSE NEGATIVE (NEGATIVE) URINE BILIRUBIN NEGATIVE (NEGATIVE) URINE KETONE NEGATIVE (NEGATIVE) URINE SPECIFIC GRAVITY 1.020 (1.010-1.030) URINE PH 7.0 (5.0-8.0) URINE PROTEIN NEGATIVE (NEGATIVE) URINE UROBILINOGEN 0.2 EU/dL (0.2-1.0) URINE NITRITE NEGATIVE (NEGATIVE) URINE BLOOD NEGATIVE (NEGATIVE) URINE LEUK ESTERASE NEGATIVE (NEGATIVE) URINE RBC 0-1 rbc/hpf (0-1) URINE WBC 1-3 wbc/hpf (0-1) URINE EPITHELIAL CELLS 1-3 EPI/hpf (0-5) URINE BACTERIA NONE SEEN (NONE SEEN) URINE COMMENT CULT NOT INDICATED URINE CULTURES ARE SET-UP BASED ON THE FOLLOWING CRITERIA:POSITIVE NITRITEPOSITIVE LEUKOCYTE ESTERASEGREATER THAN 10 WHITE BLOOD CELLSMODERATE (2+) OR GREATER BACTERIA CBC w Diff: (TJ: 07/14/2016 19:12) ( [facility] 07/14/2016 19:31) Final results Test Result Flag Units (Reference) WHITE BLOOD COUNT 12.5 H K/uL (4.5-11.5) RED BLOOD COUNT 4.78 M/uL (4.00-5.20) HEMOGLOBIN 13.1 gm/dL (12.0-16.0) HEMATOCRIT 40.5 % (36.0-46.0) MEAN CELL VOLUME 85 fL (80-100) MEAN CORPUSCULAR HGB 28 pg (26-34) MEAN CORPUSCULAR HGB CONC 33 g/dL (31-37) RED CELL DISTRIBUTION WIDTH 13.5 % (11.6-14.8) PLATELET COUNT 355 K/uL (150-400) NEUTROPHIL % 61.1 % (50-75) LYMPH % 29.6 % (25-40) MONO % 7.5 % (3-14) EOSINOPHIL % 1.4 % (0-4) BASOPHIL % 0.4 % (0-2) [id number]: (TJ: 07/14/2016 19:12) ( [facility] 07/14/2016 19:52) Final results Test Result Flag Units (Reference) D-DIMER QUANTITATIVE < 0.27 L ug/mLFEU (0.27-0.52) The primary value of this quantitative assay relates toits negative predictive value (i.e. exclusion) of pulmonaryembolism/deep vein thrombosis/DIC.Elevated levels of d-dimer may also occur with:, age, cancer, inflammation, liver disease,post-op, infection, hematoma, coronary disease, peripheralarteriopathy, bleeding disorders and thrombolytic treatment.Results should be correlated with other clinical andradiological data.Testing Methodology: Latex Immunoassay BNP: (TJ: 07/14/2016 19:12) ( [facility] 07/14/2016 19:44) Final results Test Result Flag Units (Reference) B-TYPE NATRIURETIC PEPTIDE < 5.0 L pg/ml (5-100) BMP: (TJ: 07/14/2016 19:12) ( [facility] 07/14/2016 19:59) Final results Test Result Flag Units (Reference) GLUCOSE 97 mg/dL (70-110) BUN 10 mg/dL (7-18) CREATININE 0.8 mg/dL (0.6-1.3) Estimated GFR >60 mL/min Estimated GFR- >60 mL/min Note: Persistent reduction over 3 months in eGFR<60 mL/min/1.73 m2 defines CKD. Patients with eGFR values>=60 mL/min/1.73 m2 may also have CKD if evidence ofpersistent proteinuria. Additional information may be foundat www.kidney.org. SODIUM 144 mmol/L (136-145) POTASSIUM 3.7 mmol/L (3.5-5.1) CHLORIDE 107 mmol/L (98-107) CARBON DIOXIDE 27 mmol/L (21-32) CALCIUM 8.5 mg/dL (8.5-10.1) TROPONIN I <0.05 L ng/mL (0.00-1.5) TROPONIN REFERENCE RANGE:<0.1 NEGATIVE0.1-1.5 INDETERMINANT>1.5 POSITIVE THYROID STIMULATING HORMONE 3.759 H uIU/mL (0.34-3.74) FREE T4 (FREE THYROXINE) 1.20 ng/dL (0.78-4.13) . Pulse Oximetry: 07/14/2016 18:52 O2 saturation: 100%. (FIO2 - room air). Interpretation: normal. PROGRESS AND PROCEDURES Course of Care: No signs of serious cardiopulmonary disease now. Mild hypothyroid (chronic and without myxedema). Patient/family counseled. Old ED records reviewed. Disposition: Discharged. Condition: stable and improved. CLINICAL IMPRESSION Bilateral pedal edema secondary to chronic venous insufficiency and unknown cause. Acquired hypothyroidism. INSTRUCTIONS Drink plenty of fluids. Do not smoke. Seek medical help to quit smoking. No alcohol until released. Warnings: Further evaluation is necessary. It is very important to follow up with a physician. GENERAL WARNINGS: Return or contact your physician immediately if your condition worsens or changes unexpectedly, if not improving as expected, or if other problems arise. Prescription Medications: Levothyroxine 100 mcg: take 1 orally every 24 hours. Dispense fifteen (15). No refills. Follow-up with: [facility], [place], , [address] [place] [address], [place] [address] Follow up Saturday in two days. (Electronically signed by Jean-Claude Barrera DO 07/14/2016 21:32)
--- NOTE | 2016-07-14 20:17 | ED ORDER SUMMARY ---
..... Patient: AUGUSTUS WINSLOW OrderSheet [facility] VisitID: [id number] [place] [address] 20y, F Registration Date/Time: 07/14/2016 ORDER SHEET Weight: 125.4 kg Allergies: Toradol, Tramadol GENERAL ORDERS: CMP Urgent (18:49 07/14/2016 [facility]) (Ack 18:52 [facility]) (Cancelled: Other19:04 [facility]) BMP Urgent (18:49 07/14/2016 [facility]) (Ack 18:52 [facility]) (19:04 [facility]) UA-Culture if indicated Urgent (18:49 07/14/2016 [facility]) (Ack 18:52 [facility]) (20:31 JSanders R.N.) D-Dimer Urgent (18:50 07/14/2016 [facility]) (Ack 18:52 [facility]) (20:31 JSanders R.N.) TSH Urgent (18:51 07/14/2016 [facility]) (Ack 18:52 [facility]) (20:31 JSanders R.N.) FT4(Free T4) Urgent (18:51 07/14/2016 [facility]) (Ack 18:52 [facility]) (20:31 JSanders R.N.) Troponin-I Urgent (18:59 07/14/2016 [facility]) (Ack 19:01 [facility]) (20:31 JSanders R.N.) BNP Urgent (19:04 07/14/2016 [facility]) (Ack 19:05 [facility]) (20:31 JSanders R.N.) CBC w Diff Urgent (19:05 07/14/2016 [facility]) (Ack 19:05 [facility]) (20:31 JSanders R.N.) MEDICATION ORDERS: IV FLUIDS: ORDER SHEET NOTES: [Electronically signed by Jean-Claude Barrera DO (21:32 07/14/2016)] [Electronically signed by Eloisa Rodriguez R.N. (07/15/2016)] [Electronically locked/signed by Eloisa Rodriguez R.N. (07/15/2016)]
--- NOTE | 2016-07-14 20:17 | ED ORDER SUMMARY ---
..... Patient: AUGUSTUS WINSLOW OrderSheet [facility] VisitID: [id number] [place] [address] 20y, F Registration Date/Time: 07/14/2016 ORDER SHEET Weight: 125.4 kg Allergies: Toradol, Tramadol GENERAL ORDERS: CMP Urgent (18:49 07/14/2016 [facility]) (Ack 18:52 [facility]) (Cancelled: Other19:04 [facility]) BMP Urgent (18:49 07/14/2016 [facility]) (Ack 18:52 [facility]) (19:04 [facility]) UA-Culture if indicated Urgent (18:49 07/14/2016 [facility]) (Ack 18:52 [facility]) (20:31 JSanders R.N.) D-Dimer Urgent (18:50 07/14/2016 [facility]) (Ack 18:52 [facility]) (20:31 JSanders R.N.) TSH Urgent (18:51 07/14/2016 [facility]) (Ack 18:52 [facility]) (20:31 JSanders R.N.) FT4(Free T4) Urgent (18:51 07/14/2016 [facility]) (Ack 18:52 [facility]) (20:31 JSanders R.N.) Troponin-I Urgent (18:59 07/14/2016 [facility]) (Ack 19:01 [facility]) (20:31 JSanders R.N.) BNP Urgent (19:04 07/14/2016 [facility]) (Ack 19:05 [facility]) (20:31 JSanders R.N.) CBC w Diff Urgent (19:05 07/14/2016 [facility]) (Ack 19:05 [facility]) (20:31 JSanders R.N.) MEDICATION ORDERS: IV FLUIDS: ORDER SHEET NOTES: [Electronically signed by Jean-Claude Barrera DO (21:32 07/14/2016)] [Electronically signed by Eloisa Rodriguez R.N. (07/15/2016)] [Electronically locked/signed by Eloisa Rodriguez R.N. (07/15/2016)]
--- NOTE | 2016-07-15 06:19 | ED DISCHARGE INSTRUCTIONS ---
Patient: AUGUSTUS WINSLOW General Instructions [facility] VisitID: [id number] [place] [address] 20y, F Registration Date/Time: 07/14/2016 Bilateral pedal edema secondary to chronic venous insufficiency and unknown cause. Acquired hypothyroidism. INSTRUCTIONS Drink plenty of fluids. Do not smoke. Seek medical help to quit smoking. No alcohol until released. Warnings: Further evaluation is necessary. It is very important to follow up with a physician. GENERAL WARNINGS: Return or contact your physician immediately if your condition worsens or changes unexpectedly, if not improving as expected, or if other problems arise. Prescription Medications: Levothyroxine 100 mcg: take 1 orally every 24 hours. Dispense fifteen (15). No refills. [place] with: [facility] [place] , [address] [place] [address] Follow up Saturday in two days. ADDITIONAL INFORMATION Leg Swelling [Bilateral] Swelling of the feet, ankles and legs is called "Edema." It is due to excess fluid collecting in the tissues. Because of gravity, excess fluid in the body settles in the lowest part. This is why the legs and feet are most affected. Some of the causes for edema include: Disease of the heart (congestive heart failure or "CHF") Prolonged standing or sitting (with the legs in the down position) Infection of the feet or legs Venous Insufficiency (congestion of blood in the veins of the legs) Varicose veins (dilated veins of the lower leg) Garters, or clothing that constricts your legs. (These will cause venous congestion by restricting blood flow.) Some medicines (hormones such as control pills; some blood pressure medicines, such as calcium channel blockers; steroids; some antidepressants such as MAO inhibitors and tricyclics.) Menstrual periods with fluid retention Renal insufficiency (a form of kidney disease) Liver failure (Some swelling is normal, but a sudden increase in leg swelling or weight gain can be a sign of a dangerous complication of ). Medical treatment will depend on the cause of your swelling. Diuretics (water pills) may be prescribed to remove excess fluid. Home Care: Do not wear garments that constrict your legs (such as garters). Elevate your legs while lying or sitting. If infection, injury or recent surgery is the cause for your swelling, stay off your legs as much as possible until symptoms improve. If your doctor says that your leg swelling is caused by venous insufficiency or varicose veins, do not sit or grating machine operator one place for long periods of time. Take breaks and walk about every few hours. Brisk walking is a good exercise and helps circulate the congested blood from your leg. Talk to your doctor about the use of support stockings to prevent daytime leg swelling. If your doctor says that heart disease is the cause of your leg swelling, follow a low-salt diet to prevent excess fluid retention. Follow Up with your doctor or as advised by our staff. Get Prompt Medical Attention if any of the following occur: New or worsening shortness of breath or chest pain Increasing swelling in both legs or ankles Swelling of the abdomen Redness, warmth or swelling in one leg Fever of 100.4F (38C) or higher, or as directed by your healthcare provider Yellow color to the skin or eyes Rapid, unexplained weight gain Hypothyroidism You have been diagnosed with hypothyroidism. This means your thyroid gland is not producing enough thyroid hormone. This hormone is important to body growth and metabolism. If you don't have enough, many body processes slow down, causing mental and physical sluggishness. A variety of other symptoms may occur and vary from mild to severe. The most severe form of this illness is called myxedema. Signs Of Hyperthyroidism (too much thyroid hormone, which can be a side effect of treatment for low thyroid): Restlessness, nervousness Increased appetite with weight loss Excess sweating Palpitations or irregular heartbeat Feeling overheated Signs Of Hypothyroidism (too little thyroid hormone): Fatigue or sluggishness Difficulty concentrating or thinking clearly; forgetfulness Dry skin, hair loss Depression Unexpected weight gain Feeling cold, or cold hands and/or feet Home Care: Take your medicine exactly as directed at the same time every day. Don't take thyroid pills with soy milk since this interferes with absorption. After taking your thyroid medicine: Wait 4 hours before eating or drinking anything that contains soy. Wait 4 hours before taking iron supplements, antacids that contain either calcium or aluminum hydroxide, or calcium supplements (regular amounts of cows milk are probably okay). Do not stop treatment on your own. If you do, your symptoms will return. Eat a high-fiber, low-calorie diet to relieve constipation and maintain a healthy weight. Get regular exercise. Talk to your doctor about an exercise program that is right for you. Follow Up with your doctor or as advised by our staff. Your thyroid level will need to be monitored for the rest of your life. During your routine visits, tell your doctor about any symptoms such as the ones listed below. Get Prompt Medical Attention if any of the following occur: Extreme fatigue Puffy hands, face, or feet Chest pain or trouble breathing Palpitations or irregular heartbeat Confusion or loss of consciousness How To Quit Smoking Smoking is one of the hardest habits to break. About half of all those who have ever smoked have been able to quit, and most of those (about 70%) who still smoke want to quit. Here are some of the best ways to stop smoking. Keep Trying: It takes most smokers about 8 tries before they are finally able to fully quit. So, the more often you try and fail, the better your chance of quitting the next time! So, don't give up! Go Cold [place]: Most ex-smokers quit cold turkey. Trying to cut back gradually doesn't seem to work as well, perhaps because it continues the smoking habit. Also, it is possible to fool yourself by inhaling more while smoking fewer cigarettes. This results in the same amount of nicotine in your body! Get Support: Support programs can make an important difference, especially for the heavy smoker. These groups offer lectures, methods to change your behavior and peer support. Call the free national Quitline for more information. 923-XKVY-AAP (115-907-4121). Low-cost or free programs are offered by many hospitals, local chapters of the [place] [employer] (799-726-6240) and the [place] [employer] (400-355-8261). Support at home is important too. Non-smokers can help by offering praise and encouragement. If the smoker fails to quit, encourage them to try again! Qrdq-Fnn-Odvcdys Medicines: For those who can't quit on their own, Nicotine Replacement Therapy (NRT) may make quitting much easier. Certain aids such as the nicotine patch, gum and lozenge are available without a prescription. However, it is best to use these under the guidance of your doctor. The skin patch provides a steady supply of nicotine to the body. Nicotine gum and lozenge gives temporary bursts of low levels of nicotine. Both methods take the edge off the craving for cigarettes. WARNING: If you feel symptoms of nicotine overdose, such as nausea, vomiting, dizziness, weakness, or fast heartbeat, stop using these and see your doctor. Prescription Medicines: After evaluating your smoking patterns and prior attempts at quitting, your doctor may offer a prescription medicine such as bupropion (Zyban, Wellbutrin), varenicline (Chantix, Champix), a niocotine inhaler or nasal spray. Each has its unique advantage and side effects which your doctor can review with you. Health Benefits Of Quitting: The benefits of quitting start right away and keep improving the longer you go without smokin minutes: blood pressure and pulse return to normal 8 hours: oxygen levels return to normal 2 days: ability to smell and taste begins to improve as damaged nerves start to regrow 2-3 weeks: circulation and lung function improves 1-9 months: decreased cough, congestion and shortness of breath; less tired 1 year: risk of heart attack decreases by half 5 years: risk of lung cancer decreases by half; risk of stroke becomes the same as a non-smoker For information about how to quit smoking, visit the following links: National Cancer [place] , Clearing the Air, Quit Smoking Today - an online booklet. http://www.smokefree.gov/pubs/clearing_the_air.pdf Smokefree.gov http://smokefree.gov/ QuitNet http://www.quitnet.com/ You have been given the following additional information: Peripheral Edema, Bilateral Hypothyroidism Smoking Cessation (Electronically signed by Jean-Claude Barrera DO 07/14/2016 21:32)
--- NOTE | 2016-07-15 06:19 | ED DISCHARGE INSTRUCTIONS ---
Patient: AUGUSTUS WINSLOW General Instructions [facility] VisitID: [id number] [place] [address] 20y, F Registration Date/Time: 07/14/2016 Bilateral pedal edema secondary to chronic venous insufficiency and unknown cause. Acquired hypothyroidism. INSTRUCTIONS Drink plenty of fluids. Do not smoke. Seek medical help to quit smoking. No alcohol until released. Warnings: Further evaluation is necessary. It is very important to follow up with a physician. GENERAL WARNINGS: Return or contact your physician immediately if your condition worsens or changes unexpectedly, if not improving as expected, or if other problems arise. Prescription Medications: Levothyroxine 100 mcg: take 1 orally every 24 hours. Dispense fifteen (15). No refills. Follow-up with: [facility] – [place], , [address] [place] [address] Follow up Saturday in two days. ADDITIONAL INFORMATION Leg Swelling [Bilateral] Swelling of the feet, ankles and legs is called "Edema." It is due to excess fluid collecting in the tissues. Because of gravity, excess fluid in the body settles in the lowest part. This is why the legs and feet are most affected. Some of the causes for edema include: Disease of the heart (congestive heart failure or "CHF") Prolonged standing or sitting (with the legs in the down position) Infection of the feet or legs Venous Insufficiency (congestion of blood in the veins of the legs) Varicose veins (dilated veins of the lower leg) Garters, or clothing that constricts your legs. (These will cause venous congestion by restricting blood flow.) Some medicines (hormones such as control pills; some blood pressure medicines, such as calcium channel blockers; steroids; some antidepressants such as MAO inhibitors and tricyclics.) Menstrual periods with fluid retention Renal insufficiency (a form of kidney disease) Liver failure (Some swelling is normal, but a sudden increase in leg swelling or weight gain can be a sign of a dangerous complication of ). Medical treatment will depend on the cause of your swelling. Diuretics (water pills) may be prescribed to remove excess fluid. Home Care: Do not wear garments that constrict your legs (such as garters). Elevate your legs while lying or sitting. If infection, injury or recent surgery is the cause for your swelling, stay off your legs as much as possible until symptoms improve. If your doctor says that your leg swelling is caused by venous insufficiency or varicose veins, do not sit or fryer line helper one place for long periods of time. Take breaks and walk about every few hours. Brisk walking is a good exercise and helps circulate the congested blood from your leg. Talk to your doctor about the use of support stockings to prevent daytime leg swelling. If your doctor says that heart disease is the cause of your leg swelling, follow a low-salt diet to prevent excess fluid retention. Follow Up with your doctor or as advised by our staff. Get Prompt Medical Attention if any of the following occur: New or worsening shortness of breath or chest pain Increasing swelling in both legs or ankles Swelling of the abdomen Redness, warmth or swelling in one leg Fever of 100.4F (38C) or higher, or as directed by your healthcare provider Yellow color to the skin or eyes Rapid, unexplained weight gain Hypothyroidism You have been diagnosed with hypothyroidism. This means your thyroid gland is not producing enough thyroid hormone. This hormone is important to body growth and metabolism. If you don't have enough, many body processes slow down, causing mental and physical sluggishness. A variety of other symptoms may occur and vary from mild to severe. The most severe form of this illness is called myxedema. Signs Of Hyperthyroidism (too much thyroid hormone, which can be a side effect of treatment for low thyroid): Restlessness, nervousness Increased appetite with weight loss Excess sweating Palpitations or irregular heartbeat Feeling overheated Signs Of Hypothyroidism (too little thyroid hormone): Fatigue or sluggishness Difficulty concentrating or thinking clearly; forgetfulness Dry skin, hair loss Depression Unexpected weight gain Feeling cold, or cold hands and/or feet Home Care: Take your medicine exactly as directed at the same time every day. Don't take thyroid pills with soy milk since this interferes with absorption. After taking your thyroid medicine: Wait 4 hours before eating or drinking anything that contains soy. Wait 4 hours before taking iron supplements, antacids that contain either calcium or aluminum hydroxide, or calcium supplements (regular amounts of cows milk are probably okay). Do not stop treatment on your own. If you do, your symptoms will return. Eat a high-fiber, low-calorie diet to relieve constipation and maintain a healthy weight. Get regular exercise. Talk to your doctor about an exercise program that is right for you. Follow Up with your doctor or as advised by our staff. Your thyroid level will need to be monitored for the rest of your life. During your routine visits, tell your doctor about any symptoms such as the ones listed below. Get Prompt Medical Attention if any of the following occur: Extreme fatigue Puffy hands, face, or feet Chest pain or trouble breathing Palpitations or irregular heartbeat Confusion or loss of consciousness How To Quit Smoking Smoking is one of the hardest habits to break. About half of all those who have ever smoked have been able to quit, and most of those (about 70%) who still smoke want to quit. Here are some of the best ways to stop smoking. Keep Trying: It takes most smokers about 8 tries before they are finally able to fully quit. So, the more often you try and fail, the better your chance of quitting the next time! So, don't give up! Go Cold [place]: Most ex-smokers quit cold turkey. Trying to cut back gradually doesn't seem to work as well, perhaps because it continues the smoking habit. Also, it is possible to fool yourself by inhaling more while smoking fewer cigarettes. This results in the same amount of nicotine in your body! Get Support: Support programs can make an important difference, especially for the heavy smoker. These groups offer lectures, methods to change your behavior and peer support. Call the free national Quitline for more information. 706-HSNM-GCK (830-004-8239). Low-cost or free programs are offered by many hospitals, local chapters of the [employer] (701-946-1125) and the [employer] (297-549-6233). Support at home is important too. Non-smokers can help by offering praise and encouragement. If the smoker fails to quit, encourage them to try again! Omji-Zdb-Lqtjwyu Medicines: For those who can't quit on their own, Nicotine Replacement Therapy (NRT) may make quitting much easier. Certain aids such as the nicotine patch, gum and lozenge are available without a prescription. However, it is best to use these under the guidance of your doctor. The skin patch provides a steady supply of nicotine to the body. Nicotine gum and lozenge gives temporary bursts of low levels of nicotine. Both methods take the edge off the craving for cigarettes. WARNING: If you feel symptoms of nicotine overdose, such as nausea, vomiting, dizziness, weakness, or fast heartbeat, stop using these and see your doctor. Prescription Medicines: After evaluating your smoking patterns and prior attempts at quitting, your doctor may offer a prescription medicine such as bupropion (Zyban, Wellbutrin), varenicline (Chantix, Champix), a niocotine inhaler or nasal spray. Each has its unique advantage and side effects which your doctor can review with you. Health Benefits Of Quitting: The benefits of quitting start right away and keep improving the longer you go without smokin minutes: blood pressure and pulse return to normal 8 hours: oxygen levels return to normal 2 days: ability to smell and taste begins to improve as damaged nerves start to regrow 2-3 weeks: circulation and lung function improves 1-9 months: decreased cough, congestion and shortness of breath; less tired 1 year: risk of heart attack decreases by half 5 years: risk of lung cancer decreases by half; risk of stroke becomes the same as a non-smoker For information about how to quit smoking, visit the following links: National Cancer [place] , Clearing the Air, Quit Smoking Today - an online booklet. http://www.smokefree.gov/pubs/clearing_the_air.pdf Smokefree.gov http://smokefree.gov/ QuitNet http://www.quitnet.com/ You have been given the following additional information: Peripheral Edema, Bilateral Hypothyroidism Smoking Cessation (Electronically signed by Jean-Claude Barrera DO 07/14/2016 21:32)
--- NOTE | 2016-07-15 06:20 | ED MED RECONCILIATION SUMMARY ---
Patient: AUGUSTUS WINSLOW Medication Reconciliation Report Merged With [facility] VisitID: [id number] [address] [place] [address] 20y, F Registration Date/Time: 07/14/2016 Weight: 125.4 kg Height/Length: 65 in. BMI: 46.1 ALLERGIES: Toradol, Tramadol The patient's Home Medications are listed below: NONE. The source(s) of the original Home Medication information: patient The following Medications were given to the patient in the Emergency Department: None. The following Medications were prescribed to the patient: Levothyroxine 100 mcg: take 1 orally every 24 hours. Dispense fifteen (15). No refills. -- Jean-Claude Barrera, DO
--- NOTE | 2016-07-15 06:20 | ED MED RECONCILIATION SUMMARY ---
Patient: AUGUSTUS WINSLOW Medication Reconciliation Report [facility] VisitID: [id number] [address] [place] [address] 20y, F Registration Date/Time: 07/14/2016 Weight: 125.4 kg Height/Length: 65 in. BMI: 46.1 ALLERGIES: Toradol, Tramadol The patient's Home Medications are listed below: NONE. The source(s) of the original Home Medication information: patient The following Medications were given to the patient in the Emergency Department: None. The following Medications were prescribed to the patient: Levothyroxine 100 mcg: take 1 orally every 24 hours. Dispense fifteen (15). No refills. -- Jean-Claude Barrera, DO
--- NOTE | 2016-07-15 06:20 | ED MAR SUMMARY ---
..... Medication Administration Record [facility] [address] [place], [place] [id number] Patient: AUGUSTUS WINSLOW Visit ID: [id number] 20y, F Weight: 125.4 kg Height/Length: 65 in BMI: 46.1 ALLERGIES: Tramadol, Toradol
--- NOTE | 2016-07-15 06:20 | ED MAR SUMMARY ---
..... Medication Administration Record [facility] [address] [place] [place], [place] [id number] Patient: AUGUSTUS WINSLOW Visit ID: [id number] 20y, F Weight: 125.4 kg Height/Length: 65 in BMI: 46.1 ALLERGIES: Tramadol, Toradol
== END 2016-07-14 20:34 | disposition home or self-care (01) ==
LOC: ED SRH 18:39
DX: E03.9 Hypothyroidism, unspecified (principal); I87.2 Venous insufficiency (chronic) (peripheral); R60.9 Edema, unspecified; M32.9 Systemic lupus erythematosus, unspecified; Z88.5 Allergy status to narcotic agent
CPT/HCPCS: 90004; 90047; 90074; 90616; 90648; 91320; 91556; 93140; 95059